=== PATIENT | female | born 1980 | race Caucasian/White ===

== ENCOUNTER 2021-06-16 14:37 | Emergency (ER) | payer BC ==
[~2021-06-16] VITALS: Ht 167.6 cm; Wt 59.0 kg
[2021-06-16] MEDS ORDERED: MALARONE 250-11 EACH PO (18:33)
[2021-06-16] MEDS ORDERED: FLAGYL500 MG PO (20:35)
== END 2021-06-16 21:15 | disposition home or self-care (01) ==
LOC: ED 14:37
DX: E86.0 Dehydration (principal); R19.7 Diarrhea, unspecified; Z79.899 Other long term (current) drug therapy
CPT/HCPCS: 80053; 81001; 85025; 96374; 99284-25; J2405; J7121